=== PATIENT | female | born 1995 | race African-American/Black ===

== ENCOUNTER 2016-06-12 11:29 | Emergency (ER) | payer SELFPAY ==
[2016-06-12 11:33] VITALS: TEMP 97
[2016-06-12 11:37] VITALS: BMI 39.1
[2016-06-12 11:54] LABS: AUTOMATED BASOPHIL 0.4 % (0-2); AUTOMATED EOSINOPHIL 0.3 % (0-5); AUTOMATED LYMPH 24.1 % (17-44); AUTOMATED MONOCYTE 5.9 % (3-10); AUTOMATED NEUTROPHIL 69.3 % (45-76); MPV 7.5 fL (7.4-10.4)
[2016-06-12 12:00] LABS: LEUKOCYTES/URINE NEG (NEGATIVE); NITRITE/URINE NEG (NEGATIVE); RBC/URINE 0-2 (0-5); URINE OCCULT BLOOD NEG (NEG/TRACE); WBC/URINE 0-2 (0-5)
[2016-06-12 12:06] LABS: BLOOD UREA NITROGEN 10 MG/DL (7-17); CALCIUM 9.3 MG/DL (8.4-10.2); CALCULATED OSMOLALITY 277 MOs/Kg (270-290); CHLORIDE 105 mEq/L (98-107); GLUCOSE 125 mg/dL (70-99); SODIUM LEVEL 144 mEq/L (137-146); TOTAL PROTEIN 8.1 G/DL (6.3-8.2)
--- NOTE | 2016-06-12 12:59 | EDPRACDOC ---
- General Information Chief Complaint: Abdominal Pain Stated Complaint: VOMITING FEVER Time Seen by Provider: 06/12/16 12:53 Mode Of Arrival: Car Home Medications: Home Medications Amoxicillin Trihydrate [Amoxicillin] 500 mg PO TID #30 tab 03/06/16 Ondansetron [Zofran Odt] 4 mg PO Q6H PRN #20 tab.rapdis 03/06/16 Dicyclomine HCl [Bentyl] 20 mg PO Q8H PRN #20 tab 06/12/16 Oseltamivir Phosphate [Tamiflu] 75 mg PO BID #10 capsule 06/12/16 Promethazine HCl [Phenergan] 25 mg MI Q8H PRN #12 supp 06/12/16 Promethazine [Phenergan] 25 mg PO Q4-6H PRN #15 tab 06/12/16 Allergies/Adverse Reactions: Allergies Allergy/AdvReac Type Severity Reaction Status Date / Time No Known Allergies Allergy Verified 06/12/16 11:36 - History of Present Illness Onset: LAST PM HPI: Pt c/o chills, congestion, non productive cough, n/v, diffuse abd pain, body aches x 1 day. Denies earache, sore throat, cp, sob, rash, changes in bowel or bladder. Pain Location: Reports: Epigastric Pain Context: Reports: Spontaneous Pain Severity: Mild Pain Quality: Reports: Aching, Cramping Pain Radiation: Reports: No Radiation Last Menstrual Period: 06/03/16 : No Adult Abdominal History: Denies: Urolithiasis, Bowel Obstruction Female Abdominal History: Denies: UTI, Ectopic, PID, Urolithiasis Modifying Factors: improves with: Nothing Female Associated Signs & Symptoms: Reports: Nausea, Vomiting, Chills Oral Intake: Decreased Urinary Output: Normal ED Past Medical History - History Reviewed Yes Nurses notes reviewed and agree except as marked - Patient Medical History GI/ History: Denies: Urinary Tract Infection Psychological History: Denies: Depression Surgical History: Reports: Tonsillectomy/Adnoidectomy - Social Medical History Smoking Status: Heavy tobacco smoker (5 or more cigarettes/day or daily pipe/ cigar) ETOH: None Substance Abuse: None EDM Review of Systems - Review of Systems Constitutional: Chills Ears: No Symptoms Reported. negative: Pain, Hearing Loss, Drainage, Ear Pulling Throat: No Symptoms Reported. negative: Pain, Swelling Nose: Congestion Mouth: No Symptoms Reported. negative: Pain, Drooling Respiratory: Cough Cardiovascular: No Symptoms Reported. negative: Chest Pain, Palpitations, Syncope, Edema, Orthopnea, PND, Skin Mottling, Cyanosis Gastrointestinal: Nausea, Pain, Vomiting Genitourinary: No Symptoms Reported. negative: Dysuria, Hematuria, Frequency, Discharge, Bleeding, Testicular Pain, Neurological: No Symptoms Reported. negative: Headache, Dizziness, Seizure, Numbness, Weakness, Speech Difficulty, Gait Difficulty Musculoskeletal: Other (bodyaches) Integumentary: No Symptoms Reported. negative: Itching, Rash, Bruising, Wound Allergic/Immunologic: No Symptoms Reported. negative: Hives, Itching Hematologic: No Symptoms Reported. negative: Lymphadenopathy, Easy Bruising, Easy Bleeding Psychiatric: No Symptoms Reported. negative: Anxiety, Depression, Hallucinations, Insomnia, Suicidal - Physical Exam Constitutional: Alert Oriented to: Time, Person, Place Last recorded Vital Signs: Last Vital Signs Temp 97.0 F L 06/12/16 11:29 Pulse 91 06/12/16 11:29 Resp 18 06/12/16 11:29 BP 137/78 06/12/16 11:29 Pulse Ox 98 06/12/16 11:29 Oxygen Pulse Oxygen Saturation 98 O2 Device Room Air Oxygen Flow Rate Fraction of Inspired Oxygen ( FIO2) - HEENT Head: Normal ( normocephalic) Eye Exam: Normal (PERRL, EOMI, Sclera white) Oropharynx: Normal (Pharynx:Moist without exudate,Gums-no swelling) Tympanic Membrane: Normal ENT EAC: Normal Nose: Congestion Neck: Normal (FROM, trachea at midline) - Respiratory/Cardiovascular Respiratory: Normal - CTA (BBS clear to auscultation without adventitious sounds ) Cardiovascular: Normal (RRR without murmur, gallop or rub) - GI Auscultation: Normal (NABS) Palpation: Normal (Soft,No rebound or guarding, non distended) Tenderness: Non tender - Musculoskeletal Back: Normal (Non-Tender) Extremities: Normal (Normal tone, Pulses 2+ No cyanosis or edema, FROM) - Integumentary Skin: Normal, Warm, Dry Lymphatics: Normal (no adenopathy) - Neurologic Memory Impaired: Normal Motor Function: Normal (Normal tone, Pulses 2+ No cyanosis or edema, FROM) Mood Description: Normal Perception: Normal - Differential Diagnosis Gastroenteritis, UTI, Other (influenza) - Results 06/12/16 11:45 06/12/16 11:45 WBC 10.8 xk/uL (3.8-10.8) 06/12/16 11:45 RBC 4.88 xM/uL (4.20-5.40) 06/12/16 11:45 Hgb 13.3 g/dL (12.0-16.0) 06/12/16 11:45 Hct 41.6 % (36-47) 06/12/16 11:45 MCV 85 fL (81-99) 06/12/16 11:45 MCH 27.3 pg (27-32) 06/12/16 11:45 MCHC 32.1 g/dl (33-36) L 06/12/16 11:45 RDW 14.9 % (11.5-14.5) H 06/12/16 11:45 Plt Count 300 xk/uL (130-400) 06/12/16 11:45 MPV 7.5 fL (7.4-10.4) 06/12/16 11:45 Neut % (Auto) 69.3 % (45-76) 06/12/16 11:45 Lymph % (Auto) 24.1 % (17-44) 06/12/16 11:45 [place] % (Auto) 5.9 % (3-10) 06/12/16 11:45 Eos % (Auto) 0.3 % (0-5) 06/12/16 11:45 Baso % (Auto) 0.4 % (0-2) 06/12/16 11:45 Absolute Neuts (auto) 7.45 xk/uL (1.7-8.2) 06/12/16 11:45 Absolute Lymphs (auto) 2.59 xk/uL (0.65-4.75) 06/12/16 11:45 Sodium 144 mEq/L (137-146) 06/12/16 11:45 Potassium 3.8 mEq/L (3.5-5.1) 06/12/16 11:45 Chloride 105 mEq/L (98-107) 06/12/16 11:45 Carbon Dioxide 26 mMOL/L (22-33) 06/12/16 11:45 Anion Gap 17 mEq/L (8-16) H 06/12/16 11:45 BUN 10 MG/DL (7-17) 06/12/16 11:45 Creatinine 0.60 MG/DL (0.52-1.04) 06/12/16 11:45 Estimated GFR (MDRD) > 60 mL/min (>=60) 06/12/16 11:45 Glucose 125 mg/dL (70-99) H 06/12/16 11:45 Calculated Osmolality 277 MOs/Kg (270-290) 06/12/16 11:45 Calcium 9.3 MG/DL (8.4-10.2) 06/12/16 11:45 Total Bilirubin 0.3 MG/DL (0.2-1.3) 06/12/16 11:45 AST 35 IU/L (14-36) 06/12/16 11:45 ALT 65 IU/L (9-52) H 06/12/16 11:45 Alkaline Phosphatase 87 IU/L (38-126) 06/12/16 11:45 Total Protein 8.1 G/DL (6.3-8.2) 06/12/16 11:45 Albumin 4.4 G/DL (3.5-5.0) 06/12/16 11:45 Lipase 38 U/L (23-300) 06/12/16 11:45 Urine Color Yellow 06/12/16 11:36 Urine Clarity Sl cldy 06/12/16 11:36 Urine pH 9.0 (5.0-8.0) H 06/12/16 11:36 Ur Specific [place] </=1.005 (1.003-1.035) 06/12/16 11:36 Urine Protein 2+ (NEG/TRACE) H 06/12/16 11:36 Urine Glucose (UA) Neg (NEGATIVE) 06/12/16 11:36 Urine Ketones Neg (NEGATIVE) 06/12/16 11:36 Urine Occult Blood Neg (NEG/TRACE) 06/12/16 11:36 Urine Nitrite Neg (NEGATIVE) 06/12/16 11:36 Urine Bilirubin Neg (NEGATIVE) 06/12/16 11:36 Urine Urobilinogen <2.0 MG/DL (0-1) 06/12/16 11:36 Ur Leukocyte Esterase Neg (NEGATIVE) 06/12/16 11:36 Urine RBC 0-2 (0-5) 06/12/16 11:36 Urine WBC 0-2 (0-5) 06/12/16 11:36 Ur Epithelial Cells 4+ 06/12/16 11:36 Urine Bacteria Few (NEG/FEW) 06/12/16 11:36 Urine Mucus Sm amt (NEG/OCC) 06/12/16 11:36 Urine Test Neg (NEGATIVE) 06/12/16 11:36 Lab Results 06/12/16 06/12/16 06/12/16 11:45 11:45 11:36 WBC 10.8 RBC 4.88 Hgb 13.3 Hct 41.6 MCV 85 MCH 27.3 MCHC 32.1 L RDW 14.9 H Plt Count 300 MPV 7.5 Neut % (Auto) 69.3 Lymph % (Auto) 24.1 [place] % (Auto) 5.9 Eos % (Auto) 0.3 Baso % (Auto) 0.4 Absolute Neuts (auto) 7.45 Absolute Lymphs (auto) 2.59 Sodium 144 Potassium 3.8 Chloride 105 Carbon Dioxide 26 Anion Gap 17 H BUN 10 Creatinine 0.60 Estimated GFR (MDRD) > 60 Glucose 125 H Calculated Osmolality 277 Calcium 9.3 Total Bilirubin 0.3 AST 35 ALT 65 H Alkaline Phosphatase 87 Total Protein 8.1 Albumin 4.4 Lipase 38 Urine Color Urine Clarity Urine pH Ur Specific [place] Urine Protein Urine Glucose (UA) Urine Ketones Urine Occult Blood Urine Nitrite Urine Bilirubin Urine Urobilinogen Ur Leukocyte Esterase Urine RBC Urine WBC Ur Epithelial Cells Urine Bacteria Urine Mucus Urine Test Neg 06/12/16 11:36 WBC RBC Hgb Hct MCV MCH MCHC RDW Plt Count MPV Neut % (Auto) Lymph % (Auto) [place] % (Auto) Eos % (Auto) Baso % (Auto) Absolute Neuts (auto) Absolute Lymphs (auto) Sodium Potassium Chloride Carbon Dioxide Anion Gap BUN Creatinine Estimated GFR (MDRD) Glucose Calculated Osmolality Calcium Total Bilirubin AST ALT Alkaline Phosphatase Total Protein Albumin Lipase Urine Color Yellow Urine Clarity Sl cldy Urine pH 9.0 H Ur Specific [place] </=1.005 Urine Protein 2+ H Urine Glucose (UA) Neg Urine Ketones Neg Urine Occult Blood Neg Urine Nitrite Neg Urine Bilirubin Neg Urine Urobilinogen <2.0 Ur Leukocyte Esterase Neg Urine RBC 0-2 Urine WBC 0-2 Ur Epithelial Cells 4+ Urine Bacteria Few Urine Mucus Sm amt Urine Test Decision Time to Discharge: 12:58 - Departure Disposition: Home Condition: Good Final Diagnosis: Influenza Instructions: Influenza (ED), Acute Abdominal Pain (ED) Education/Counseling Given To: Patient Education/Counseling Given Regarding: Diagnosis, Treatment, Follow Up Referrals: None,No Provider [Primary Care Provider] - One Week Carlos Eduardo Stapleton MD [Staff Physician] - One Week Prescriptions: New Dicyclomine HCl [Bentyl] 20 mg PO Q8H PRN #20 tab PRN Reason: Pain Oseltamivir Phosphate [Tamiflu] 75 mg PO BID #10 capsule Promethazine [Phenergan] 25 mg PO Q4-6H PRN #15 tab PRN Reason: Nausea/Vomiting Promethazine HCl [Phenergan] 25 mg MI Q8H PRN #12 supp PRN Reason: Nausea/Vomiting No Action Amoxicillin Trihydrate [Amoxicillin] 500 mg PO TID #30 tab Ondansetron [Zofran Odt] 4 mg PO Q6H PRN #20 tab.rapdis PRN Reason: Nausea/Vomiting Additional Instructions: Drink sips of Gatorade every 2-3 minutes while awake. Do NOT drink large volumes of fluid at once. If you vomit, take the nausea-vomiting medicine prescribed, wait ~ 30 minutes, and restart the sipping process. Return to the Emergency Department if you think you are getting dehydrated, have persistent abdominal pain that is unrelenting, have worse or different symptoms, or any concerns.
[2016-06-12 13:15] VITALS: BP 170/72; PULSE 76
== END 2016-06-12 13:15 | disposition home or self-care (01) ==
LOC: ED 11:29
DX: J11.1 Influenza due to unidentified influenza virus with other respiratory manifestations (principal)
CPT/HCPCS: 36415; 80053; 81001; 81025; 83690; 85025; 99283